=== PATIENT | male | born 1930 ===

== ENCOUNTER 2021-04-20 16:49 | Emergency (ER) | payer OTHER ==
[~2021-04-20] VITALS: Ht 172.7 cm; Wt 90.7 kg
[2021-04-20] MEDS ORDERED: CIPRODEX OTIC7.5 M1 LEFTEAR (18:24)
[2021-04-20] MEDS ORDERED: AMOX-CLAV 875-1 EACH PO (18:24)
== END 2021-04-20 19:23 | disposition home or self-care (01) ==
LOC: ER 16:49
DX: H60.92 Unspecified otitis externa, left ear (principal); H66.92 Otitis media, unspecified, left ear; H70.92 Unspecified mastoiditis, left ear; E11.9 Type 2 diabetes mellitus without complications; I10 Essential (primary) hypertension; I48.91 Unspecified atrial fibrillation; E78.00 Pure hypercholesterolemia, unspecified
CPT/HCPCS: 99283; A9270